=== PATIENT | female | born 1980 | race Caucasian/White ===

== ENCOUNTER 2023-09-05 18:13 | Inpatient (IN) ==
--- NOTE | 2023-09-05 19:01 | Emergency Department Note ---
History of Present Illness General Chief complaint: Mental Health Evaluation Stated complaint: MHE Time Seen by Provider: 09/05/23 18:22 History of Present Illness Provider complaint: Mental health evaluation 43-year-old female with history of depression presents emergency department for mental health evaluation. Patient states she has been having suicidal ideations and yesterday had a plan to overdose on her pills. Patient did not actually attempt to overdose because her son intervened. No access to any firearms. No drugs or alcohol. No chance of . Home Medications Medication Instructions Recorded Confirmed Type Jardiance 10 mg PO DAILY 09/05/23 09/05/23 History Vitamin D3 25 mcg PO DAILY 09/05/23 09/05/23 History atorvastatin 10 mg PO DAILY 09/05/23 09/05/23 History bupropion HCl 150 mg PO DAILY 09/05/23 09/05/23 History escitalopram oxalate 10 mg PO DAILY 09/05/23 09/05/23 History ferrous sulfate 324 mg PO DAILY 09/05/23 09/05/23 History metformin 1,000 mg PO DAILY 09/05/23 09/05/23 History omeprazole 20 mg PO DAILY 09/05/23 09/05/23 History Past Med/Surg History Problem List (Updated 09/05/23 @ 21:39 by Quentin Hauser MD) Depression with suicidal ideation (Acute) Medical History No pertinent family history Depression Surgical History No pertinent past surgical history Social History Smoking Status: Never smoker Feels Safe at Home: Yes Gender Identity: Female Physical Exam Vital Signs Vital Signs - 24 hr 09/05/23 18:18 Temperature 36.4 C L Temperature Source Temporal Artery Scan Pulse Rate 102 H Respiratory Rate 18 Respiratory Effort / Characteristics Non-Labored Spontaneous Respiratory Depth Normal Blood Pressure 149/99 H Blood Pressure Mean 115 Pulse Oximetry 95 Oxygen Delivery Method Room Air Sepsis Recent Fever Within 48 Hours No Sepsis New/Unexplained Change in Mental Status No Sepsis Action Taken by Nursing No Action Required Physical Exam HENT: Exam performed. - Head: Normocephalic and atraumatic. EYES: Conjunctivae and EOM are normal. Right eye exhibits no discharge. Left eye exhibits no discharge. No scleral icterus. NECK: Normal range of motion. Neck supple. No JVD present. CV: Normal rate, regular rhythm, normal heart sounds and intact distal pulses. There is no peripheral edema. Palpable radial pulses bue. PULM/CHEST: Effort normal and breath sounds normal. No respiratory distress. No stridor. no wheezes. no rales. ABD: The abdomen is soft. There is no tenderness. NEURO: Motor and sensation grossly intact. SKIN: Skin is warm and dry. He is not diaphoretic. PSYCH: Patient appears depressed. Patient is tearful. Psych positive for suicidal ideation. Course Course 1821: The patient was evaluated in room A6. A complete history and physical exam was performed 2137: Patient medically cleared. Patient accepted to 3 S. Medical Decision Making Laboratory Data Attestation: I reviewed the patient's lab results. 09/05/23 18:50 09/05/23 18:50 Lab Results 09/05/23 09/05/23 09/05/23 Range/Units 18:30 18:50 18:53 WBC 10.36 (4.8-10.8) K/ul RBC 5.01 (4.20-5.40) M/uL Hgb 12.5 (12.0-16.0) g/dl Hct 39.1 (37.0-47.0) % MCV 78.0 L (80.0-100.0) fL MCH 25.0 (25.0-34.0) pg MCHC 32.0 (32.0-36.0) g/dL RDW Std Deviation 40.1 (36.4-46.3) fL RDW Coeff of [place] 14.5 (11.5-14.5) % Plt Count 482 H (130-400) K/uL MPV 8.3 L (9.4-12.4) fL Immature Gran % (Auto) 0.5 % Neut % (Auto) 64.2 % Lymph % (Auto) 26.0 % [place] % (Auto) 6.6 % Eos % (Auto) 2.2 % Baso % (Auto) 0.5 % Neut # (Auto) 6.66 H (1.40-6.50) K/uL Lymph # (Auto) 2.69 (1.20-3.40) K/uL [place] # (Auto) 0.68 H (0.11-0.59) K/uL Eos # (Auto) 0.23 (0.00-0.50) K/uL Baso # (Auto) 0.05 (0.00-0.20) K/uL Immature Gran # (Auto) 0.05 (0.01-0.20) K/uL Sodium 137 (136-145) mmol/L Potassium 3.8 (3.5-5.1) mmol/L Chloride 104 (98-107) mmol/L Carbon Dioxide 21 (21-32) mmol/L Anion Gap 12 H (3-11) BUN 15 (6-23) mg/dl Creatinine 0.68 (0.6-1.2) mg/dl Est Cr Clr Drug Dosing 122.7 ml/min Est GFR ( Amer) 123.3 ml/min Est GFR (Non-Af Amer) 106.4 ml/min BUN/Creatinine Ratio 22.1 H (10-20) Glucose 121 H (70-99(Fasting)) mg/dl Calcium 9.3 (8.6-10.3) mg/dl Total Bilirubin 0.3 (0.2-1.0) mg/dl AST 19 (13-39) U/L ALT 21 (7-52) U/L Alkaline Phosphatase 65 (34-104) U/L Total Protein 7.5 (6.0-8.3) gm/dl Albumin 4.2 (3.4-5.0) gm/dl Globulin 3.3 (2.5-4.0) gm/dl Albumin/Globulin Ratio 1.3 (0.9-2) TSH 1.604 (0.300-4.500) uIu/ml Urine Color Yellow Urine Appearance Clear (Clear) Urine pH 6.0 (4.5-7.5) Ur Specific [place] > 1.045 H (1.000-1.030) Urine Protein Negative (Negative) Urine Glucose (UA) 3+ H (Negative) Urine Ketones 1+ H (Negative) Urine Blood Negative (Negative) Urine Nitrite Negative (Negative) Urine Bilirubin Negative (Negative) Urine Urobilinogen Negative (Negative) Ur Leukocyte Esterase Negative (Negative) Urine Test Negative (Negative) Salicylates < 3.0 L (3.0-30) mg/dl Urine Opiates Screen Neg (Neg) Ur Methadone, Qual Neg (Neg) Urine Fentanyl Screen Neg (Neg) Acetaminophen < 3 L (10-30) ug/ml Urine Barbiturates Neg (Neg) Ur Phencyclidine (PCP) Neg (Neg) U Amphetamin/Meth Scrn Neg (Neg) MDMA (Ecstasy) Screen Pos H (Neg) U Benzodiazepines Scrn Neg (Neg) Ur Cocaine Metabolite Neg (Neg) U Marijuana (THC) Screen Neg (Neg) Ethyl Alcohol mg/dL < 10.0 (<10.0) mg/dl SARS-CoV-2, RNA, NAAT NEGATIVE (NEGATIVE) MDM Narrative 1821: The patient was evaluated in room A6. A complete history and physical exam was performed 2137: Patient medically cleared. Patient accepted to 3 S. Impression & Plan Depression with suicidal ideation Discharge Plan Visit Data Chief Complaint: Mental Health Evaluation Stated Complaint: MHE ED Provider: Quentin Hauser Discharge Problem: Depression with suicidal ideation Patient Disposition: Admitted As Inpatient Forms Stand Alone Forms: [facility], Suicide Prevention Resources Prescriptions Prescriptions: No Action escitalopram oxalate 10 mg PO DAILY bupropion HCl 150 mg PO DAILY atorvastatin 10 mg PO DAILY omeprazole 20 mg PO DAILY ferrous sulfate 324 mg PO DAILY metformin 1,000 mg PO DAILY Jardiance 10 mg PO DAILY Vitamin D3 25 mcg PO DAILY Referrals Referrals: PCP,NO [Physician] -
[2023-09-05 19:10] LABS: Appearance Urine Clear (Clear); Bilirubin Urine Negative (Negative); Blood Urine Negative (Negative); Color Urine Yellow; Glucose Urine UA 3+ (Negative); Ketones Urine 1+ (Negative); Leukocyte Esterase Urine Negative (Negative); Nitrite Urine Negative (Negative); Protein Urine Negative (Negative); Specific Gravity Urine > 1.045 (1.000-1.030); Urobilinogen Urine Negative (Negative)
[2023-09-05 19:16] LABS: Pregnancy Test, Urine Negative (Negative)
[2023-09-05 19:23] LABS: Basophils # (auto) 0.05 K/uL (0.00-0.20); Basophils % (auto) 0.5 %; Eosinophils # (auto) 0.23 K/uL (0.00-0.50); Eosinophils % (auto) 2.2 %; Hematocrit (blood only) 39.1 % (37.0-47.0); Hemoglobin 12.5 g/dl (12.0-16.0); Immature Granulocytes # (auto) 0.05 K/uL (0.01-0.20); Immature Granulocytes % (auto) 0.5 %; Lymphocytes # (auto) 2.69 K/uL (1.20-3.40); Mean Platelet Volume 8.3 fL (9.4-12.4); Monocytes # (auto) 0.68 K/uL (0.11-0.59); Monocytes % (auto) 6.6 %; Neutrophils # (auto) 6.66 K/uL (1.40-6.50); Neutrophils % (auto) 64.2 %; Platelet Count 482 K/uL (130-400); RDW Coefficient of Variation 14.5 % (11.5-14.5); RDW Standard Deviation 40.1 fL (36.4-46.3); Red Blood Count 5.01 M/uL (4.20-5.40); White Blood Count 10.36 K/ul (4.8-10.8)
[2023-09-05 19:32] LABS: Amphetamines+Metham, Urine Neg (Neg); Barbiturates, Urine Neg (Neg); Benzodiazepine, Urine Neg (Neg); Cocaine, Urine Neg (Neg); Fentanyl, Urine Neg (Neg); MDMA (Ecstacy), Urine Pos (Neg); Marijuana, Urine Neg (Neg); Methadone, Urine Neg (Neg); Opiate, Urine Neg (Neg); Phencyclidine, Urine Neg (Neg)
[2023-09-05 19:40] LABS: Albumin Globulin Ratio 1.3 (0.9-2); Albumin Level 4.2 gm/dl (3.4-5.0); BUN Creatinine Ratio 22.1 (10-20); Bilirubin,Total 0.3 mg/dl (0.2-1.0); Calcium 9.3 mg/dl (8.6-10.3); Creatinine Clr Calc Pharmacy 122.7 ml/min; Est GFR (African American) 123.3 ml/min; Est GFR (Non-African American) 106.4 ml/min; Globulin 3.3 gm/dl (2.5-4.0); Potassium 3.8 mmol/L (3.5-5.1); Total Protein 7.5 gm/dl (6.0-8.3)
[2023-09-05 19:48] LABS: Acetaminophen < 3 ug/ml (10-30); Salicylate < 3.0 mg/dl (3.0-30)
[2023-09-05 19:54] LABS: Thyroid Stimulating Hormone 1.604 uIu/ml (0.300-4.500)
[2023-09-05] MEDS ORDERED: MAGNESIUM HYDROXIDE SUSP 30 ML UDC PO PRN (22:22)
[2023-09-05] MEDS ORDERED: BISMUTH SUBSALICYLATE LIQD 236 ML PO PRN (22:22)
[2023-09-05] MEDS ORDERED: ALUMINUM/MAGNESIUM SUSP 30 ML UDC PO PRN (22:22)
[2023-09-05] MEDS ORDERED: hydrOXYzine HCl 25 MG TAB PO PRN (22:22)
[2023-09-05] MEDS ORDERED: ACETAMINOPHEN 325 MG TAB PO PRN (22:22)
[2023-09-05] MEDS ORDERED: SODIUM CHLORIDE 0.65% NA SOLN 45 ML (OCEAN) PRN (22:22)
[2023-09-05] MEDS: ATORVASTATIN 10 MG TAB PO ONE (22:57)
[2023-09-05] MEDS: ESCITALOPRAM OXALATE 10 MG TAB PO ONE (22:57)
[2023-09-06] MEDS: metFORMIN HCL 500 MG TAB PO SCH (08:51)
[2023-09-06] MEDS: FERROUS SULFATE 325 MG TAB PO SCH (08:51)
[2023-09-06] MEDS: buPROPion XL 150 MG TABCR PO SCH (08:51)
[2023-09-06] MEDS: CHOLECALCIFEROL 25 MCG (1000 UNITS) TAB PO SCH (08:51)
[2023-09-06] MEDS: EMPAGLIFLOZIN 10 MG TAB PO SCH (08:52)
[2023-09-06] MEDS: OMEPRAZOLE 20 MG CAPCR PO SCH (08:52)
[2023-09-06] MEDS ORDERED: buPROPion HCl 75 MG TABLET PO SCH (09:00)
[2023-09-06] MEDS: lamoTRIgine 25 MG TAB PO SCH (15:03)
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
[2023-09-06] MEDS: hydrOXYzine HCl 25 MG TAB PO PRN (21:18)
[2023-09-06] MEDS: traZODone HCL 50 MG TAB PO SCH (21:18)
[2023-09-06] MEDS: ESCITALOPRAM OXALATE 10 MG TAB PO SCH (21:18)
[2023-09-06] MEDS: ARIPiprazole 5 MG TAB PO SCH (21:18)
[2023-09-06] MEDS: ATORVASTATIN 10 MG TAB PO SCH (21:19)
--- NOTE | 2023-09-07 13:46 | Psychiatric Progress Note ---
Date of Service September 07, 2023 Impression / Recommendations Impression Jessica Centeno is a 43-year-old female lives alone h/o depression who presents with SI plan to overdose on pills in the context of escalating depression and family concerns. She was admitted on 09/05/23 21:35 on a 201 voluntary commitment for suicidal ideation. Patient's presentation is concerning for a bipolar 2 major depressive episode, generalized anxiety disorder, agoraphobia, cluster B personality disorder. Patient presents improved sleep and is tolerating the medication changes well. We clarified symptoms today and she presents anxious ruminations about multiple topics and has associated self judgment and physical anxiety. Introduced patient to cognitive behavioral therapy and the thought mood and behavior cycle and was given a list of automatic thoughts to reflect on. Plan to continue treatment. Labs pending. Overall, I spent a total of 75 minutes with this case including review of chart records, nursing report, review of lab work, direct evaluation of the patient at bedside, counseling the patient, multidisciplinary team meeting, orders, and documentation in the electronic health record. (1) Bipolar 2 disorder, major depressive episode: (2) Generalized anxiety disorder with panic attacks: (3) Agoraphobia: (4) Cluster B personality disorder: Plan 09/07/2023: Continue medications. Administer Reid borderline personality screener. 09/06/2023: The patient was admitted to the [facility] ([facility]) on q15 min checks (behavioral with suicide precautions) for safety. The patient will participate in group, recreational, and milieu therapies and will be offered additional individual and family sessions as clinically appropriate. -Discontinue Wellbutrin. -Start lamotrigine 25 mg every morning. -Start Abilify 5 mg and trazodone 50 mg at bedtime. -Labs:A1C, fasting lipid panel, vitamin D, vitamin B12. Inventory Assets Strengths: family support, open to care Needs: outpatient psychiatrist, therapy Suicide Risk Level Suicide Risk Level: Moderate (q15 min suicide checks) Risk Factors Assessment Male: No : Yes Do You Have Access To A Gun?: No Health Problems: Yes Mental Health Diagnoses: Yes Substance Use Disorders: No Previous Attempt: Yes Family History of Suicide: No Previous Psychiatric Hospitalization: No Hopelessness: Yes Protective Factors Assessment Jewish Beliefs: Yes : No Responsible for Young Children: No Employed: No Stable Relationships: No Supportive Family: Yes Good Rapport with Provider: Yes Absence of Any Risk Factors Above: No Interval History Identifying Information Jessica Centeno is a 43-year-old female lives alone h/o depression who presents with SI plan to overdose on pills in the context of escalating depression and family concerns. She was admitted on 09/05/23 21:35 on a 201 voluntary commitment for suicidal ideation. Chief Complaint "Hate myself" Review of Systems Sleep Information Total Hours of Sleep: 7.15 Sleep Comments: HS Abilify and Trazadone with PRN Vistaril Meal Information Percent Meal Consumed - Breakfast: 100 Percent Meal Consumed - Lunch: 60 Percent Meal Consumed - Dinner: 60 Subjective Subjective Patient was seen & assessed and interval progress reviewed with treatment team nursing and social work Reports sleeping well. Woke up twice to use the bathroom and was able to go back to sleep. Reports having sleep maintenance issues for the past few months. Feels tired and "groggy" this morning. Reports having worries about finances, health problems, family dynamics, self-care, future. Says she often feels guilty for how her relationships go and not being able to keep up with her tasks. Reports depression was affecting function at work and taking care of chores at home. Upset that she lost her job. Currently staying with her aunt and wants to get connected to services in this area. Says she "hates herself" and feels like a burden. Complains of intermittent SI that has become less frequent however still present. Physical Exam Mental Examination Appearance: Well Groomed Eye Contact: Maintains Eye Contact Motor Behavior: Unremarkable Speech: Normal Mood: Anxious and Tearful Affect: Congruent Thought Process: Intact and Linear Thought Content: Intact Hallucinations: None Insight: Fair Judgement: Poor Vital Signs (Past 24 Hours) Last Vital Signs Temp 36.8 C 09/07/23 06:34 Pulse 98 H 09/07/23 06:34 Resp 16 09/07/23 06:34 BP 127/79 09/07/23 06:34 Pulse Ox 98 09/05/23 22:45 O2 Del Method Room Air 09/05/23 22:45 Results & Data ([facility]) Current Inpatient Medications Current Inpatient Medications: Current Inpatient Medications Acetaminophen (Acetaminophen 325 Mg Tab) 650 mg PO Q4H PRN PRN Reason: Headache or Minor Fever Stop: 08/25/24 22:21 Al Hydrox/Mg Hydrox/Simethicone (Aluminum/Magnesium Susp 30 Ml Udc) 30 ml PO Q4H PRN PRN Reason: GI Upset Stop: 10/05/23 22:21 Aripiprazole (Aripiprazole 5 Mg Tab) 5 mg PO HS [facility] Stop: 10/06/23 21:59 Last Admin: 09/06/23 21:18 Dose: 5 mg Atorvastatin Calcium (Atorvastatin 10 Mg Tab) 10 mg PO HS [facility] Stop: 10/06/23 21:59 Last Admin: 09/06/23 21:19 Dose: 10 mg Bismuth Subsalicylate (Bismuth Subsalicylate Liqd 236 Ml) 15 ml PO PRN PRN PRN Reason: Loose Stool Stop: 10/05/23 22:21 Empagliflozin (Empagliflozin 10 Mg Tab) 10 mg PO DAILY [facility] Stop: 10/06/23 08:59 Last Admin: 09/07/23 08:41 Dose: 10 mg Escitalopram Oxalate (Escitalopram Oxalate 10 Mg Tab) 10 mg PO HS [facility] Stop: 10/06/23 21:59 Last Admin: 09/06/23 21:18 Dose: 10 mg Ferrous Sulfate (Ferrous Sulfate 325 Mg Tab) 325 mg PO QAM [facility] Stop: 10/06/23 08:59 Last Admin: 09/07/23 08:40 Dose: 325 mg Hydroxyzine HCl (Hydroxyzine Hcl 25 Mg Tab) 50 mg PO HSZ PRN PRN Reason: Insomnia Stop: 10/05/23 22:21 Last Admin: 09/06/23 21:18 Dose: 50 mg Hydroxyzine HCl (Hydroxyzine Hcl 25 Mg Tab) 25 mg PO Q4H PRN PRN Reason: Anxiety Stop: 10/05/23 22:21 Lamotrigine (Lamotrigine 25 Mg Tab) 25 mg PO QAM [facility]; Protocol Stop: 10/06/23 13:59 Last Admin: 09/07/23 08:40 Dose: 25 mg Magnesium Hydroxide (Magnesium Hydroxide Susp 30 Ml Udc) 30 ml PO DAILY PRN PRN Reason: Constipation Stop: 10/05/23 22:21 Metformin HCl (Metformin Hcl 500 Mg Tab) 1,000 mg PO DAILY [facility] Stop: 10/06/23 08:59 Last Admin: 09/07/23 08:40 Dose: 1,000 mg Omeprazole (Omeprazole 20 Mg Capcr) 20 mg PO DAILY [facility] Stop: 10/06/23 08:59 Last Admin: 09/07/23 08:41 Dose: 20 mg Sodium Chloride (Sodium Chloride 0.65% Na Soln 45 Ml ([place])) 1 - 2 sprays NA PRN PRN PRN Reason: Nasal Dryness/Congestion Stop: 10/05/23 22:21 Trazodone HCl (Trazodone Hcl 50 Mg Tab) 50 mg PO HS [facility] Stop: 10/06/23 21:59 Last Admin: 09/06/23 21:18 Dose: 50 mg Vitamin D (Cholecalciferol 25 Mcg (1000 Units) Tab) 25 mcg PO QAM [facility] Stop: 10/06/23 08:59 Last Admin: 09/07/23 08:40 Dose: 25 mcg Mental Health & Subst Abuse Tx Psychiatrist Date Of Appointment With Psychiatric Provider: JENNIFFER Therapist Name of Therapist: unknown Date of Therapist Appointment: NA Reel Slitter Name of Reel Slitter: unknown Post Discharge Appointments Primary Care Physician Name Of Family Doctor/PCP: Dr. Piedra ([place]) Date of Future Appointment with PCP: 09/11/23
[2023-09-08 08:22] LABS: Chol HDL Ratio 4.4 (0-5)
[2023-09-08 08:41] LABS: Estimated Average Glucose 146 mg/dl; Hemoglobin A1C 6.7 % (4.5-5.6)
[2023-09-08] MEDS: CYANOCOBALAMIN (B-12) 100 MCG TABLET PO SCH (11:09)
--- NOTE | 2023-09-08 14:11 | Psychiatric Progress Note ---
Date of Service September 08, 2023 Impression / Recommendations Impression Jessica Centeno is a 43-year-old female lives alone h/o depression who presents with SI plan to overdose on pills in the context of escalating depression and family concerns. She was admitted on 09/05/23 21:35 on a 201 voluntary commitment for suicidal ideation. Patient's presentation is concerning for a bipolar 2 major depressive episode, generalized anxiety disorder, agoraphobia, cluster B personality disorder. Today clarified symptoms with patient and concern for cluster B personality disorder however does not meet full criteria for borderline personality disorder. She reflects on automatic thoughts and was counseled on new perspectives to improve mental outlook. Would highly benefit from engagement in psychotherapy in addition to medication management. Continues to be a safety concern if discharged in her current state as she presents limited future thinking, presents self-esteem issues and worthlessness, and recent escalation towards suicide attempt. Metabolic labs resulted in reviewed with the patient; within expected limits. B12 levels in a low normal and started low-dose supplement daily. Overall, I spent a total of 45 minutes with this case including review of chart records, nursing report, review of lab work, direct evaluation of the patient at bedside, counseling the patient, multidisciplinary team meeting, orders, and documentation in the electronic health record. (1) Bipolar 2 disorder, major depressive episode: (2) Generalized anxiety disorder with panic attacks: (3) Agoraphobia: (4) Cluster B personality disorder: Plan 09/08/2023: B12 supplements started daily. Continue other medications and treatment plan. 09/07/2023: Continue medications. Administer Reid borderline personality screener. 09/06/2023: The patient was admitted to the [facility] ([facility] health unit) on q15 min checks (behavioral with suicide precautions) for safety. The patient will participate in group, recreational, and milieu therapies and will be offered additional individual and family sessions as clinically appropriate. -Discontinue Wellbutrin. -Start lamotrigine 25 mg every morning. -Start Abilify 5 mg and trazodone 50 mg at bedtime. -Labs:A1C, fasting lipid panel, vitamin D, vitamin B12. Inventory Assets Strengths: family support, open to care Needs: outpatient psychiatrist, therapy Suicide Risk Level Suicide Risk Level: Moderate (q15 min suicide checks) Risk Factors Assessment Male: No : Yes Do You Have Access To A Gun?: No Health Problems: Yes Mental Health Diagnoses: Yes Substance Use Disorders: No Previous Attempt: Yes Family History of Suicide: No Previous Psychiatric Hospitalization: No Hopelessness: Yes Protective Factors Assessment Faith Beliefs: Yes : No Responsible for Young Children: No Employed: No Stable Relationships: No Supportive Family: Yes Good Rapport with Provider: Yes Absence of Any Risk Factors Above: No Interval History Identifying Information Jessica Centeno is a 43-year-old female lives alone h/o depression who presents with SI plan to overdose on pills in the context of escalating depression and family concerns. She was admitted on 09/05/23 21:35 on a 201 voluntary commitment for suicidal ideation. Chief Complaint "Negative thinking" Review of Systems Sleep Information Total Hours of Sleep: 8 Sleep Comments: HS Jeff and Talia with PRN Vistaril Meal Information Percent Meal Consumed - Breakfast: 100 Percent Meal Consumed - Lunch: 95 Percent Meal Consumed - Dinner: 90 Subjective Subjective Patient was seen & assessed and interval progress reviewed with treatment team nursing and social work The patient reports sleeping well. Feels less groggy and more rested today. She reflects on the borderline personality screener and reports at times arguments can get out of control especially with her sister. Complains of difficulty with intense emotions and chronic feelings of emptiness. She talks about the automatic thoughts that she engages in including negative thinking, expecting "disaster", taking responsibility for others emotional states, mind reading and often feeling that she is being judged. Complains of hopelessness and worthlessness. Reports having passive SI. Denies any active SI plan. Physical Exam Mental Examination Appearance: Well Groomed Eye Contact: Maintains Eye Contact Motor Behavior: Unremarkable Speech: Normal Mood: Anxious and Tearful Affect: Congruent Thought Process: Intact and Linear Thought Content: Intact Hallucinations: None Insight: Fair Judgement: Poor Vital Signs (Past 24 Hours) Last Vital Signs Temp 36.9 C 09/08/23 06:47 Pulse 87 09/08/23 06:48 Resp 16 09/08/23 06:47 BP 124/80 09/08/23 06:48 Pulse Ox 98 09/05/23 22:45 O2 Del Method Room Air 09/05/23 22:45 Results & Data (U) Laboratory Results Laboratory Results - last 24 hr 09/08/23 07:36 Estimat Average Glucose 146 Hemoglobin A1c 6.7 H Triglycerides 222 H Cholesterol 159 LDL Cholesterol, Calc 79 VLDL Cholesterol, Calc 44 H HDL Cholesterol 36 Cholesterol/HDL Ratio 4.4 Vitamin B12 248 25-OH Vitamin D Total 39.2 Current Inpatient Medications Current Inpatient Medications: Current Inpatient Medications Acetaminophen (Acetaminophen 325 Mg Tab) 650 mg PO Q4H PRN PRN Reason: Headache or Minor Fever Stop: 10/05/23 22:21 Al Hydrox/Mg Hydrox/Simethicone (Aluminum/Magnesium Susp 30 Ml Udc) 30 ml PO Q4H PRN PRN Reason: GI Upset Stop: 10/05/23 22:21 Aripiprazole (Aripiprazole 5 Mg Tab) 5 mg PO HS [facility] Stop: 10/06/23 21:59 Last Admin: 09/07/23 21:10 Dose: 5 mg Atorvastatin Calcium (Atorvastatin 10 Mg Tab) 10 mg PO HS [facility] Stop: 10/06/23 21:59 Last Admin: 09/07/23 21:12 Dose: 10 mg Bismuth Subsalicylate (Bismuth Subsalicylate Liqd 236 Ml) 15 ml PO PRN PRN PRN Reason: Loose Stool Stop: 10/05/23 22:21 Cyanocobalamin (Cyanocobalamin (B-12) 100 Mcg Tablet) 100 mcg PO QAM [facility] Stop: 10/08/23 10:29 Last Admin: 09/08/23 11:09 Dose: 100 mcg Empagliflozin (Empagliflozin 10 Mg Tab) 10 mg PO DAILY [facility] Stop: 10/06/23 08:59 Last Admin: 09/08/23 08:46 Dose: 10 mg Escitalopram Oxalate (Escitalopram Oxalate 10 Mg Tab) 10 mg PO HS [facility] Stop: 10/06/23 21:59 Last Admin: 09/07/23 21:11 Dose: 10 mg Ferrous Sulfate (Ferrous Sulfate 325 Mg Tab) 325 mg PO QAM [facility] Stop: 10/06/23 08:59 Last Admin: 09/08/23 08:46 Dose: 325 mg Hydroxyzine HCl (Hydroxyzine Hcl 25 Mg Tab) 50 mg PO HSZ PRN PRN Reason: Insomnia Stop: 10/05/23 22:21 Last Admin: 09/06/23 21:18 Dose: 50 mg Hydroxyzine HCl (Hydroxyzine Hcl 25 Mg Tab) 25 mg PO Q4H PRN PRN Reason: Anxiety Stop: 10/05/23 22:21 Lamotrigine (Lamotrigine 25 Mg Tab) 25 mg PO QAM [facility]; Protocol Stop: 10/06/23 13:59 Last Admin: 09/08/23 08:46 Dose: 25 mg Magnesium Hydroxide (Magnesium Hydroxide Susp 30 Ml Udc) 30 ml PO DAILY PRN PRN Reason: Constipation Stop: 10/05/23 22:21 Metformin HCl (Metformin Hcl 500 Mg Tab) 1,000 mg PO DAILY [facility] Stop: 10/06/23 08:59 Last Admin: 09/08/23 08:46 Dose: 1,000 mg Omeprazole (Omeprazole 20 Mg Capcr) 20 mg PO DAILY [facility] Stop: 10/06/23 08:59 Last Admin: 09/08/23 08:47 Dose: 20 mg Sodium Chloride (Sodium Chloride 0.65% Na Soln 45 Ml ([place])) 1 - 2 sprays NA PRN PRN PRN Reason: Nasal Dryness/Congestion Stop: 10/05/23 22:21 Trazodone HCl (Trazodone Hcl 50 Mg Tab) 50 mg PO HS [facility] Stop: 10/06/23 21:59 Last Admin: 09/07/23 21:11 Dose: 50 mg Vitamin D (Cholecalciferol 25 Mcg (1000 Units) Tab) 25 mcg PO QAM [facility] Stop: 10/06/23 08:59 Last Admin: 09/08/23 08:46 Dose: 25 mcg Mental Health & Subst Abuse Tx Psychiatrist Date Of Appointment With Psychiatric Provider: JENNIFFER Therapist Name of Therapist: [facility] Therapist's Date of Therapist Appointment: 09/18/2023 Time of Therapist Appointment: 12:00 noon Room Service Food Service Attendant Name of Room Service Food Service Attendant: unknown Post Discharge Appointments Primary Care Physician Name Of Family Doctor/PCP: Dr. Piedra ([place]) Primary Care Date of Future Appointment with PCP: 09/11/23 Contact Information Discharge
--- NOTE | 2023-09-09 16:00 | Psychiatric Progress Note ---
Date of Service September 09, 2023 Impression / Recommendations Impression Jessica Centeno is a 43-year-old female lives alone h/o depression who presents with SI plan to overdose on pills in the context of escalating depression and family concerns. She was admitted on 09/05/23 21:35 on a 201 voluntary commitment for suicidal ideation. Patient's presentation is concerning for a bipolar 2 major depressive episode, generalized anxiety disorder, agoraphobia, cluster B personality disorder. Hypomanic episodes noted to not cause dysfunction. Patient is more future oriented and presents a positive outlook. She presents a safe discharge plan to be with family. Tolerating medications well. Overall, I spent a total of 45 minutes with this case including review of chart records, nursing report, review of lab work, direct evaluation of the patient at bedside, counseling the patient, multidisciplinary team meeting, orders, and documentation in the electronic health record. (1) Bipolar 2 disorder, major depressive episode: (2) Generalized anxiety disorder with panic attacks: (3) Agoraphobia: (4) Cluster B personality disorder: Plan 09/09/2023: Continue medications and treatment plan. 09/08/2023: B12 supplements started daily. Continue other medications and treatment plan. 09/07/2023: Continue medications. Administer Reid borderline personality screener. 09/06/2023: The patient was admitted to the [facility] ([facility]) on q15 min checks (behavioral with suicide precautions) for safety. The patient will participate in group, recreational, and milieu therapies and will be offered additional individual and family sessions as clinically appropriate. -Discontinue Wellbutrin. -Start lamotrigine 25 mg every morning. -Start Abilify 5 mg and trazodone 50 mg at bedtime. -Labs:A1C, fasting lipid panel, vitamin D, vitamin B12. Inventory Assets Strengths: family support, open to care Needs: outpatient psychiatrist, therapy Suicide Risk Level Suicide Risk Level: Moderate (q15 min suicide checks) Risk Factors Assessment Male: No : Yes Do You Have Access To A Gun?: No Health Problems: Yes Mental Health Diagnoses: Yes Substance Use Disorders: No Previous Attempt: Yes Family History of Suicide: No Previous Psychiatric Hospitalization: No Hopelessness: Yes Protective Factors Assessment Sikh Beliefs: Yes : No Responsible for Young Children: No Employed: No Stable Relationships: No Supportive Family: Yes Good Rapport with Provider: Yes Absence of Any Risk Factors Above: No Interval History Identifying Information Jessica Centeno is a 43-year-old female lives alone h/o depression who presents with SI plan to overdose on pills in the context of escalating depression and family concerns. She was admitted on 09/05/23 21:35 on a 201 voluntary commitment for suicidal ideation. Chief Complaint "Good" Review of Systems Sleep Information Total Hours of Sleep: 8 Sleep Comments: Trazadone PRN Meal Information Percent Meal Consumed - Breakfast: 100 Percent Meal Consumed - Lunch: 100 Percent Meal Consumed - Dinner: 75 Subjective Subjective Patient was seen & assessed and interval progress reviewed with treatment team nursing and social work Patient reports feeling 5 out of 10 and "optimistic". She filled out the intake form for case management and felt overwhelmed by. She did discusses the task that she has to do when she leaves. Plans to live with her aunt and uncle in her own room for the indefinite future. Reports short-term goals of setting up aftercare plan focusing on self-care and her health. In the future she wants to gain more independence and eventually work. Reports having less passive suicidal ideation today. No plan. Physical Exam Mental Examination Appearance: Well Groomed Eye Contact: Maintains Eye Contact Motor Behavior: Unremarkable Speech: Normal Mood: Euthymic and Anxious Affect: Congruent Thought Process: Intact and Linear Thought Content: Intact Hallucinations: None Insight: Fair Judgement: Fair (improved) Vital Signs (Past 24 Hours) Last Vital Signs Temp 36.8 C 09/09/23 06:38 Pulse 92 H 09/09/23 06:39 Resp 16 09/09/23 06:38 BP 133/79 09/09/23 06:39 Pulse Ox 98 09/05/23 22:45 O2 Del Method Room Air 09/05/23 22:45 Results & Data (U) Current Inpatient Medications Current Inpatient Medications: Current Inpatient Medications Acetaminophen (Acetaminophen 325 Mg Tab) 650 mg PO Q4H PRN PRN Reason: Headache or Minor Fever Stop: 10/05/23 22:21 Al Hydrox/Mg Hydrox/Simethicone (Aluminum/Magnesium Susp 30 Ml Udc) 30 ml PO Q4H PRN PRN Reason: GI Upset Stop: 10/05/23 22:21 Aripiprazole (Aripiprazole 5 Mg Tab) 5 mg PO HS [facility] Stop: 10/06/23 21:59 Last Admin: 09/08/23 21:02 Dose: 5 mg Atorvastatin Calcium (Atorvastatin 10 Mg Tab) 10 mg PO HS [facility] Stop: 10/06/23 21:59 Last Admin: 09/08/23 21:02 Dose: 10 mg Bismuth Subsalicylate (Bismuth Subsalicylate Liqd 236 Ml) 15 ml PO PRN PRN PRN Reason: Loose Stool Stop: 10/05/23 22:21 Cyanocobalamin (Cyanocobalamin (B-12) 100 Mcg Tablet) 100 mcg PO QAM [facility] Stop: 10/08/23 10:29 Last Admin: 09/09/23 08:32 Dose: 100 mcg Empagliflozin (Empagliflozin 10 Mg Tab) 10 mg PO DAILY [facility] Stop: 10/06/23 08:59 Last Admin: 09/09/23 08:32 Dose: 10 mg Escitalopram Oxalate (Escitalopram Oxalate 10 Mg Tab) 10 mg PO HS [facility] Stop: 10/06/23 21:59 Last Admin: 09/08/23 21:02 Dose: 10 mg Ferrous Sulfate (Ferrous Sulfate 325 Mg Tab) 325 mg PO QAM [facility] Stop: 10/06/23 08:59 Last Admin: 09/09/23 08:32 Dose: 325 mg Hydroxyzine HCl (Hydroxyzine Hcl 25 Mg Tab) 50 mg PO HSZ PRN PRN Reason: Insomnia Stop: 10/05/23 22:21 Last Admin: 09/06/23 21:18 Dose: 50 mg Hydroxyzine HCl (Hydroxyzine Hcl 25 Mg Tab) 25 mg PO Q4H PRN PRN Reason: Anxiety Stop: 10/05/23 22:21 Lamotrigine (Lamotrigine 25 Mg Tab) 25 mg PO QAM [facility]; Protocol Stop: 10/06/23 13:59 Last Admin: 09/09/23 08:32 Dose: 25 mg Magnesium Hydroxide (Magnesium Hydroxide Susp 30 Ml Udc) 30 ml PO DAILY PRN PRN Reason: Constipation Stop: 10/05/23 22:21 Metformin HCl (Metformin Hcl 500 Mg Tab) 1,000 mg PO DAILY [facility] Stop: 10/06/23 08:59 Last Admin: 09/09/23 08:31 Dose: 1,000 mg Omeprazole (Omeprazole 20 Mg Capcr) 20 mg PO DAILY [facility] Stop: 10/06/23 08:59 Last Admin: 09/09/23 08:32 Dose: 20 mg Sodium Chloride (Sodium Chloride 0.65% Na Soln 45 Ml ([place])) 1 - 2 sprays NA PRN PRN PRN Reason: Nasal Dryness/Congestion Stop: 10/05/23 22:21 Trazodone HCl (Trazodone Hcl 50 Mg Tab) 50 mg PO HS [facility] Stop: 10/06/23 21:59 Last Admin: 09/08/23 21:02 Dose: 50 mg Vitamin D (Cholecalciferol 25 Mcg (1000 Units) Tab) 25 mcg PO QAM [facility] Stop: 10/06/23 08:59 Last Admin: 09/09/23 08:32 Dose: 25 mcg Mental Health & Subst Abuse Tx Psychiatrist Name of Psychiatrist: Carolina Botello - [facility] Psychiatrist's Date Of Appointment With Psychiatric Provider: 09.17.2023 Time of Appointment with Psychiatrist: 1245 arrival Psychiatric Appointment Comment: Please bring insurance card to appointment & $40 Co Pay Therapist Name of Therapist: [facility] Therapist's Date of Therapist Appointment: 09/18/2023 Time of Therapist Appointment: 12:00 noon Stretcher Leveler Operator Name of Stretcher Leveler Operator: unknown Post Discharge Appointments Primary Care Physician Name Of Family Doctor/PCP: Mone Pham MD Primary Care Date of Future Appointment with PCP: 09/16/23 Time of Appointment with PCP: 10:00an Contact Information Discharge
--- NOTE | 2023-09-10 15:24 | Psychiatric Progress Note ---
Date of Service September 10, 2023 Impression / Recommendations Impression Jessica Centeno is a 43-year-old female lives alone h/o depression who presents with SI plan to overdose on pills in the context of escalating depression and family concerns. She was admitted on 09/05/23 21:35 on a 201 voluntary commitment for suicidal ideation. Patient's presentation is concerning for a bipolar 2 major depressive episode, generalized anxiety disorder, agoraphobia, cluster B personality disorder. Hypomanic episodes noted to not cause dysfunction. A: Patient is planning towards discharge. Feeling more optimistic and endorses improved self esteem. Provided information on mindfulness meditation. Overall, I spent a total of 30 minutes with this case including review of chart records, nursing report, direct evaluation of the patient at bedside, counseling the patient, multidisciplinary team meeting, and documentation in the electronic health record. (1) Bipolar 2 disorder, major depressive episode: (2) Generalized anxiety disorder with panic attacks: (3) Agoraphobia: (4) Cluster B personality disorder: Plan 09/10/2023: Continue medications and treatment plan. 09/09/2023: Continue medications and treatment plan. 09/08/2023: B12 supplements started daily. Continue other medications and treatment plan. 09/07/2023: Continue medications. Administer Reid borderline personality screener. 09/06/2023: The patient was admitted to the [facility] ([facility] unit) on q15 min checks (behavioral with suicide precautions) for safety. The patient will participate in group, recreational, and milieu therapies and will be offered additional individual and family sessions as clinically appropriate. -Discontinue Wellbutrin. -Start lamotrigine 25 mg every morning. -Start Abilify 5 mg and trazodone 50 mg at bedtime. -Labs:A1C, fasting lipid panel, vitamin D, vitamin B12. Inventory Assets Strengths: family support, open to care Needs: outpatient psychiatrist, therapy Suicide Risk Level Suicide Risk Level: Moderate (q15 min suicide checks) Risk Factors Assessment Male: No : Yes Do You Have Access To A Gun?: No Health Problems: Yes Mental Health Diagnoses: Yes Substance Use Disorders: No Previous Attempt: Yes Family History of Suicide: No Previous Psychiatric Hospitalization: No Hopelessness: Yes Protective Factors Assessment Taoist Beliefs: Yes : No Responsible for Young Children: No Employed: No Stable Relationships: No Supportive Family: Yes Good Rapport with Provider: Yes Absence of Any Risk Factors Above: No Interval History Identifying Information Jessica Centeno is a 43-year-old female lives alone h/o depression who presents with SI plan to overdose on pills in the context of escalating depression and family concerns. She was admitted on 09/05/23 21:35 on a 201 voluntary commitment for suicidal ideation. Chief Complaint "Better" Review of Systems Sleep Information Total Hours of Sleep: 7.5 Sleep Comments: Trazadone PRN Meal Information Percent Meal Consumed - Breakfast: 100 Percent Meal Consumed - Lunch: 100 Percent Meal Consumed - Dinner: 100 Subjective Subjective Patient was seen & assessed and interval progress reviewed with treatment team nursing and social work Patient rates her mood as 6 out of 10. Slept well and is able to stay asleep through the night. She discusses the activities she is getting do when she goes home including playing with her aunt's new puppy. Says that she enjoys pets but in the past was too depressed to be able to take care of them. She is thinking of permanently staying in [place] because she knows more people here and has a very community however is unsure yet. Reports short-term plans of living with her aunt, cooking more, focusing on self-care and spending more time in n ature. She denies suicidal ideation and reports improved outlook. Physical Exam Mental Examination Appearance: Well Groomed Eye Contact: Maintains Eye Contact Motor Behavior: Unremarkable Speech: Normal Mood: Euthymic and Anxious Affect: Congruent Thought Process: Intact and Linear Thought Content: Intact Hallucinations: None Insight: Fair Judgement: Fair (improved) Vital Signs (Past 24 Hours) Last Vital Signs Temp 36.9 C 09/10/23 06:39 Pulse 96 H 09/10/23 06:40 Resp 16 09/10/23 06:39 BP 136/81 09/10/23 06:40 Pulse Ox 98 09/05/23 22:45 O2 Del Method Room Air 09/05/23 22:45 Results & Data ([facility]) Current Inpatient Medications Current Inpatient Medications: Current Inpatient Medications Acetaminophen (Acetaminophen 325 Mg Tab) 650 mg PO Q4H PRN PRN Reason: Headache or Minor Fever Stop: 10/05/23 22:21 Al Hydrox/Mg Hydrox/Simethicone (Aluminum/Magnesium Susp 30 Ml Udc) 30 ml PO Q4H PRN PRN Reason: GI Upset Stop: 10/05/23 22:21 Aripiprazole (Aripiprazole 5 Mg Tab) 5 mg PO HS [facility] Stop: 10/06/23 21:59 Last Admin: 09/09/23 21:18 Dose: 5 mg Atorvastatin Calcium (Atorvastatin 10 Mg Tab) 10 mg PO HS [facility] Stop: 10/06/23 21:59 Last Admin: 09/09/23 21:18 Dose: 10 mg Bismuth Subsalicylate (Bismuth Subsalicylate Liqd 236 Ml) 15 ml PO PRN PRN PRN Reason: Loose Stool Stop: 10/05/23 22:21 Cyanocobalamin (Cyanocobalamin (B-12) 100 Mcg Tablet) 100 mcg PO QAM [facility] Stop: 10/08/23 10:29 Last Admin: 09/10/23 08:41 Dose: 100 mcg Empagliflozin (Empagliflozin 10 Mg Tab) 10 mg PO DAILY [facility] Stop: 10/06/23 08:59 Last Admin: 09/10/23 08:42 Dose: 10 mg Escitalopram Oxalate (Escitalopram Oxalate 10 Mg Tab) 10 mg PO HS [facility] Stop: 10/06/23 21:59 Last Admin: 09/09/23 21:18 Dose: 10 mg Ferrous Sulfate (Ferrous Sulfate 325 Mg Tab) [facility] Stop: 10/06/23 08:59 Last Admin: 09/10/23 08:42 Dose: 325 mg Hydroxyzine HCl (Hydroxyzine Hcl 25 Mg Tab) 50 mg PO HSZ PRN PRN Reason: Insomnia Stop: 10/05/23 22:21 Last Admin: 09/06/23 21:18 Dose: 50 mg Hydroxyzine HCl (Hydroxyzine Hcl 25 Mg Tab) 25 mg PO Q4H PRN PRN Reason: Anxiety Stop: 10/05/23 22:21 Lamotrigine (Lamotrigine 25 Mg Tab) 25 mg PO QAM [facility]; Protocol Stop: 10/06/23 13:59 Last Admin: 09/10/23 08:42 Dose: 25 mg Magnesium Hydroxide (Magnesium Hydroxide Susp 30 Ml Udc) 30 ml PO DAILY PRN PRN Reason: Constipation Stop: 10/05/23 22:21 Metformin HCl (Metformin Hcl 500 Mg Tab) 1,000 mg PO DAILY [facility] Stop: 08/26/24 08:59 Last Admin: 09/10/23 08:42 Dose: 1,000 mg Omeprazole (Omeprazole 20 Mg Capcr) 20 mg PO DAILY [facility] Stop: 10/06/23 08:59 Last Admin: 09/10/23 08:41 Dose: 20 mg Sodium Chloride (Sodium Chloride 0.65% Na Soln 45 Ml ([place])) 1 - 2 sprays NA PRN PRN PRN Reason: Nasal Dryness/Congestion Stop: 10/05/23 22:21 Trazodone HCl (Trazodone Hcl 50 Mg Tab) 50 mg PO HS [facility] Stop: 10/06/23 21:59 Last Admin: 09/09/23 21:19 Dose: 50 mg Vitamin D (Cholecalciferol 25 Mcg (1000 Units) Tab) 25 mcg PO QAM [facility] Stop: 10/06/23 08:59 Last Admin: 09/10/23 08:41 Dose: 25 mcg Mental Health & Subst Abuse Tx Psychiatrist Name of Psychiatrist: Carolina Botello - [facility] Psychiatrist's Date Of Appointment With Psychiatric Provider: 09.17.2023 Time of Appointment with Psychiatrist: 1245 arrival Psychiatric Appointment Comment: Please bring insurance card to appointment & $40 Co Pay Therapist Name of Therapist: [facility] Therapist's Date of Therapist Appointment: 09/18/2023 Time of Therapist Appointment: 12:00 noon On Site Wastewater Systems Technician Name of On Site Wastewater Systems Technician: unknown Post Discharge Appointments Primary Care Physician Name Of Family Doctor/PCP: Mone Pham MD Primary Care Date of Future Appointment with PCP: 09/16/23 Time of Appointment with PCP: 10:00an Contact Information Discharge
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
[2023-09-11] MEDS ORDERED: DESTROY THIS MEDICATION ONE (11:17)
[2023-09-12 12:27] LABS: MDA negative; MDEA negative; MDMA (Ecstasy) Urine, Confirm negative
== END 2023-09-11 14:13 | disposition home or self-care (01) | DRG 885 ==
LOC: ED 18:13 → 3S 21:35